=== PATIENT | male | born 1950 | race Caucasian/White ===

== ENCOUNTER 2021-04-24 21:46 | Observation (INO) ==
[2021-04-24] MEDS ORDERED: LORazepam 0.5 MG/1 ML VIAL IV STA (22:05)
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
[2021-04-24 22:28] LABS: Basophils # (auto) 0.01 K/uL (0-0.2); Basophils % (auto) 0.1 %; Eosinophils % (auto) 1.4 %; Hematocrit (blood only) 36.4 % (42-52); Immature Granulocytes # (auto) 0.01 K/uL (0.00-0.02); Immature Granulocytes % (auto) 0.1 %; Lymphocytes % (auto) 19.4 %; Mean Corpuscular Hemoglobin 31.6 pg (25-34); Mean Corpuscular Hgb Conc 35.7 g/dL (32-36); Mean Corpuscular Volume 88.3 fL (80-100); Mean Platelet Volume 9.6 fL (7.4-10.4); Monocytes # (auto) 0.74 K/uL (0.11-0.59); Monocytes % (auto) 10.3 %; Neutrophils # (auto) 4.95 K/uL (1.4-6.5); Neutrophils % (auto) 68.7 %; Platelet Count 298 K/uL (130-400); RDW Coefficient of Variation 13.2 % (11.5-14.5); RDW Standard Deviation 42.7 fL (36.4-46.3); Red Blood Count 4.12 M/uL (4.7-6.1); White Blood Count 7.21 K/uL (4.8-10.8)
[2021-04-24 22:40] LABS: Partial Thromboplastin Ratio 1.4; Partial Thromboplastin Time 38.1 Seconds (21.0-31.0); Prothrombin Time 10.5 Seconds (9.0-12.0)
[2021-04-24 22:49] LABS: Alanine Aminotransferase 16 U/L (7-52); Albumin Globulin Ratio 1.7 (0.9-2); Albumin Level 4.4 gm/dl (3.4-5.0); Alkaline Phosphatase 59 U/L (34-104); Anion Gap 9 (3-11); Aspartate Aminotransferase 19 U/L (13-39); BUN Creatinine Ratio 19.1 (10-20); Bilirubin,Total 0.5 mg/dl (0.2-1.0); Blood Urea Nitrogen 17 mg/dl (6-23); Calcium 9.4 mg/dl (8.5-10.1); Carbon Dioxide 21 mmol/L (21-32); Chloride 94 mmol/L (98-107); Creatinine Clr Calc Pharmacy 93.5 ml/min; Est GFR (African American) 99.7 ml/min; Globulin 2.6 gm/dl (2.5-4.0); Glucose 133 mg/dl (70-99(Fasting)); Magnesium 1.6 mg/dl (1.7-2.4); Potassium 4.1 mmol/L (3.5-5.1); Sodium 124 mmol/L (136-145)
[2021-04-24 22:50] LABS: Troponin I < 0.03 ng/ml (0-0.04)
[2021-04-24] MEDS ORDERED: SODIUM CHLORIDE 0.9% 500 ML IV ONE (23:11)
[2021-04-24] MEDS: MAGNESIUM SULFATE / D5W 1 GM/100 ML BAG IV SCH (23:52)
[2021-04-25] MEDS ORDERED: OPTIRAY 320 125ml IV ONE
[2021-04-25] MEDS: MAGNESIUM SULFATE / D5W 1 GM/100 ML BAG IV SCH (00:58)
--- NOTE | 2021-04-25 01:02 | Emergency Department Note ---
ED Visit Note I have been personally involved in this case with the PA. I agree with the diagnosis and management decisions and have been personally involved in decision making of this case. Please see Katie Weiner PA-C's notes for further details of the history, physical and visit. .
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
[2021-04-25] MEDS ORDERED: NON-FORMULARY MEDICATION (Diphenhydramine Hcl 25 mg Tablet) PO SCH (03:43)
[2021-04-25] MEDS ORDERED: oxyCODONE HCL IR 5 MG TAB (IMMEDIATE RELEASE) PO SCH (03:43)
[2021-04-25] MEDS ORDERED: ACETAMINOPHEN 325 MG TAB PO PRN (03:43)
[2021-04-25] MEDS ORDERED: CALCIUM CARBONATE 500 MG CHEWABLE TAB PO PRN (03:49)
[2021-04-25 07:13] LABS: Basophils # (auto) 0.02 K/uL (0-0.2); Basophils % (auto) 0.3 %; Eosinophils % (auto) 1.6 %; Hematocrit (blood only) 38.2 % (42-52); Hemoglobin 13.5 g/dL (14.0-18.0); Lymphocytes % (auto) 34.5 %; Mean Corpuscular Hemoglobin 31.5 pg (25-34); Mean Corpuscular Hgb Conc 35.3 g/dL (32-36); Mean Platelet Volume 9.7 fL (7.4-10.4); Monocytes # (auto) 0.83 K/uL (0.11-0.59); Neutrophils # (auto) 3.23 K/uL (1.4-6.5); Neutrophils % (auto) 50.6 %; Platelet Count 317 K/uL (130-400); RDW Coefficient of Variation 13.5 % (11.5-14.5); Red Blood Count 4.29 M/uL (4.7-6.1); White Blood Count 6.38 K/uL (4.8-10.8)
--- NOTE | 2021-04-25 07:14 | CT Scan Report ---
UNENHANCED CT OF THE BRAIN; CT ANGIOGRAM OF THE BRAIN; CT ANGIOGRAM OF THE NECK CLINICAL HISTORY: Strokelike symptoms. Dizziness. COMPARISON STUDY: CT of the brain dated 08/02/2020. TECHNIQUE: Unenhanced axial CT scan of the brain is performed. Subsequently, following the IV adminis tration of 121 of [address] [address], CT angiogram of the head and neck was performed from the aortic arch t o the vertex. Images are reviewed in the axial, sagittal, and coronal planes. 3-D MIPS images are cre ated and assessed. IV contrast was administered without complication. All measurements were calculate d based on NASCET criteria. A dose lowering technique was utilized adhering to the principles of ALA RA. CT DOSE: 1298.95 mGy.cm FINDINGS: Brain parenchyma: There is minimal microangiopathic change. There is no hemorrhage, mass effect, or e vidence of acute territorial ischemia by CT criteria. There is no evidence of enhancing mass lesion o n the angiogram phase images. The ventricles, sulci, and cisterns are normal in configuration. Ortiz-w kyleigh matter differentiation is preserved. No extra-axial fluid collection is seen. Thoracic aorta: Visualized portions of the thoracic aorta are normal in caliber. The aortic arch demo nstrates standard 3-vessel anatomy. Right carotid arterial system: The right common carotid artery is widely patent, as is the right exte rnal carotid artery. 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 Left carotid arterial system: The left common carotid artery is widely patent, as are the left intern product marketing manager al and external carotid arteries. Atherosclerotic plaque is noted in the carotid bulb. Vertebral arteries: There is moderate stenosis at the origin of both vertebral arteries. The vertebra l arteries are otherwise patent in the neck noting left-sided dominance. Subclavian arteries: Widely patent bilaterally. Intracranial vasculature: There is atherosclerotic calcification of the cavernous carotid arteries. T he right internal carotid artery is thrombosed at the skull base to the [place]. There is mi nimal retrograde flow. The left internal carotid artery is patent with the skull base, and the anteri or and middle cerebral arteries are patent bilaterally. The right anterior and middle cerebral arteri es are likely supplied via the anterior communicating artery. The vertebrobasilar system and posterio r cerebral arteries are widely patent. The left vertebral artery is dominant. There is no aneurysm, h igh-grade stenosis, or focal vessel cut off seen throughout the intracranial circulation. Jugular veins: Patent bilaterally. Dural sinuses: Patent. Lung apices: Partially visualized upper lobe lung parenchyma appears clear. Soft tissues: The visualized pharyngeal soft tissues are normal in appearance noting angiographic pha se technique. The oropharyngeal airway appears widely patent. The salivary and thyroid glands are nor mal in appearance. No cervical lymphadenopathy is seen. Skeletal structures: The calvarium appears intact. The cervical spine is within normal limits. Orbits: The bony orbits are intact. Orbital contents are normal as visualized. Sinuses and mastoids: The paranasal sinuses are clear. The mastoid air cells are well pneumatized. IMPRESSION: 1. There is no hemorrhage, mass effect, or evidence of acute territorial ischemia by CT criteria. 2. 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 This is age indeterminant and may be chronic. 3. The remaining intracranial vessels are patent. The right anterior and middle cerebral arteries are likely supplied via the anterior communicating artery. 4. The left carotid arterial system is widely patent. 5. There is moderate stenosis at the origin of both vertebral arteries. ACT 112: Negative or not required by law. Electronically signed by: Franco Bhatti M.D. 04/25/2021 7:12 AM
--- NOTE | 2021-04-25 07:28 | XRay Report ---
XR chest 1V portable CLINICAL HISTORY: Weakness. COMPARISON STUDY: Chest radiograph March 08, 2021. CT August 02, 2020. FINDINGS: Lung volumes are normal. Lungs are clear. There is no pneumothorax or pleural effusion. Car diac size is normal. Mediastinal contours are normal. There is no evidence for pulmonary edema. IMPRESSION: No acute cardiopulmonary findings. ACT 112: Negative or not required by law. Electronically signed by: Bao Barron M.D. 04/25/2021 7:27 AM
--- NOTE | 2021-04-25 07:36 | Medical Student Progress Note ---
Date of Service April 25, 2021 Assessment & Plan (1) Dizziness: Plan: This is a 70 year old gentleman with a history of hypertension who presented with fatigue and malaise found to have hyponatremia. 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 - symptoms have improved with fluid restriction, no neurological symptoms - sodium 133 (124 on admission) - negative troponin, normal TSH, CXR no acute pathology, CT Head and Head & Neck CTA shows chronic disease of right internal carotid but no acute pathology - per patient, drinks about 5 L of plain water a day because he's "always being told to drink more" - counseled him on limiting water intake by a little more than half his current intake Hypomagnesemia, resolved: - 1.6 on admission - s/p 2 mg - 2.3 on 04/25/21 AM HTN: - Continue home amlodipine, irbesartan-HCTZ GERD: - Continue home omeprazole - Tums prn HLD: - Continue home atorvastatin Code status: full code Diet: Heart Healthy, 2000 mL fluid restriction DVT Prophylaxis: Lovenox Dispo: ready for discharge (2) Acute hyponatremia: (3) Hypomagnesemia: (4) Hypertension: (5) GERD (gastroesophageal reflux disease): (6) Hyperlipidemia: (7) Primary polydipsia: Admission and Anticipated Discharge Date Admission Date: April 25, 2021 Subjective Dontrell feels better this AM. He says that his lethargy, nausea, and headache have resolved. No confusion, no weakness. Spent some time counseling him on appropriate water intake. Review of Systems Review of Systems: per HPI Physical Exam Constitutional: WD/WN, vitals as above Eyes: PERRL, conjunctivae normal, anicteric sclerae ENMT: external ear and nose normal, oropharynx normal Neck: trachea midline, no thyromegaly Respiratory: normal respiratory effort, lungs clear to auscultation Cardiovascular: RRR, no murmur, no edema Psychiatric: A+Ox3, euthymic affect Results & Data ([facility]) Vital Signs (Past 12 Hours) Vital Signs Temp Pulse Pulse Resp BP BP Pulse Ox 04/25/21 03:40 37 C 69 17 169/95 H 99 04/25/21 03:22 78 16 135/96 97 04/25/21 02:00 63 18 136/89 97 04/25/21 00:00 71 18 167/82 H 97 04/24/21 22:35 68 18 151/96 H 97 04/24/21 21:50 36.4 C L 74 28 H 199/109 H 99
[2021-04-25 07:39] LABS: BUN Creatinine Ratio 15.6 (10-20); Calcium 9.4 mg/dl (8.5-10.1); Creatinine Clr Calc Pharmacy 87.5 ml/min; Est GFR (African American) 99.2 ml/min; Est GFR (Non-African American) 85.6 ml/min; Magnesium 2.3 mg/dl (1.7-2.4); Phosphorus 3.4 mg/dl (2.5-4.9)
[2021-04-25] MEDS ORDERED: MELATONIN 3 MG TAB PO PRN (08:18)
[2021-04-25] MEDS ORDERED: amLODIPine BESYLATE 5 MG TAB PO SCH (09:00)
[2021-04-25] MEDS ORDERED: PANTOprazole 40 MG TAB PO SCH (09:00)
[2021-04-25] MEDS ORDERED: hydroCHLOROthiazide 25 MG TAB PO SCH (09:00)
[2021-04-25] MEDS ORDERED: IRBESARTAN 150 MG TAB PO SCH (09:00)
[2021-04-25] MEDS ORDERED: ENOXAPARIN INJ 40 MG/0.4 ML SYR SQ SCH (09:15)
--- NOTE | 2021-04-25 10:30 | Electrocardiogram Report ---
Test Reason : Blood Pressure : / mmHG Vent. Rate : 064 BPM Atrial Rate : 064 BPM P-R Int : 162 ms QRS Dur : 092 ms QT Int : 400 ms P-R-T Axes : 021 040 038 degrees QTc Int : 412 ms Sinus rhythm with Premature atrial complexes Otherwise normal ECG When compared with ECG of 08-MAR-2021 16:59, Premature atrial complexes are now Present QRS duration has decreased QT has shortened Confirmed by Dragan Chao ([id number]) on 04/25/2021 10:29:52 AM Referred By: REFERRED SELF Confirmed By:Winston Chao
--- NOTE | 2021-04-25 14:32 | Discharge Summary ---
Date of Service April 25, 2021 Admission HPI Per Admitting Provider 70yo male with HTN, HLD, GERD, hearing loss, and renal cyst presents with a two- day history of fatigue, chills, lightheadedness, headache, and feeling feverish. No recent illnesses or sick contacts. Symptoms developed gradually. Denies objective fever, congestion, sore throat, cough, CP, palpitations, SOB, abdominal pain, nausea, vomiting, diarrhea, dysuria, numbness, tingling, weakness, or other symptoms. Patient notes he has been drinking a large volume of water each day (about five to eight 16oz bottles during the day and five to six at night) which he does "to replace the fluids that my miralax and diuretic take away from me". Patient notes he needs to urinate about every 15 minutes. Patient notes he's been drinking this quantity of fluids for "at least a few months" but is unsure of exactly how long it's been going on. No change in appetite recently. Denies alcohol use or other recreational substance use. Admission Exam Per Admitting Provider Constitutional: well-appearing, no acute distress HEENT: NCAT, no conjunctival injection, MMM CV: regular rhythm, no murmur appreciated, extremities well-perfused, no LE edema Resp: CTABL, no wheezes/rales/rhonchi appreciated, no increased work of breathing GI: soft, nondistended, nontender, BS normoactive MSK: no gross deformities appreciated Skin: warm, dry, no rash appreciated Neuro: alert, oriented, no focal neurologic deficit appreciated Principal Diagnosis Hyponatremia Discharge Exam Constitutional WD/WN, vitals as above Eyes PERRL, conjunctivae normal, anicteric sclerae Neck trachea midline, no thyromegaly Respiratory normal respiratory effort, lungs clear to auscultation Cardiovascular RRR, no murmur, no edema Gastrointestinal (Abdomen) normal bowel sounds, soft, nontender, no hepatosplenomegaly Skin warm, dry, well-perfused Psychiatric A+Ox3, euthymic affect Discharge Data Allergies Allergy/AdvReac Type Severity Reaction Status Date / Time Penicillins AdvReac Intermediate Gastrointestinal Verified 04/24/21 23:08 Upset sulfacetamide AdvReac Intermediate Gastrointestinal Verified 04/24/21 23:08 [From Sulfamide] Upset Consultations 04/25/21 00:53 ED Decision to Admit Stat Ordered Studies Laboratory Results 04/25/21 04/25/21 04/24/21 Range/Units 06:30 06:30 23:55 WBC 6.38 (4.8-10.8) K/uL RBC 4.29 L (4.7-6.1) M/uL Hgb 13.5 L (14.0-18.0) g/dL Hct 38.2 L (42-52) % MCV 89.0 (80-100) fL MCH 31.5 (25-34) pg MCHC 35.3 (32-36) g/dL RDW Std Deviation 44.0 (36.4-46.3) fL RDW Coeff of Moises 13.5 (11.5-14.5) % Plt Count 317 (130-400) K/uL MPV 9.7 (7.4-10.4) fL Immature Gran % (Auto) 0.0 % Neut % (Auto) 50.6 % Lymph % (Auto) 34.5 % Lea % (Auto) 13.0 % Eos % (Auto) 1.6 % Baso % (Auto) 0.3 % Neut # (Auto) 3.23 (1.4-6.5) K/uL Lymph # (Auto) 2.20 (1.2-3.4) K/uL Lea # (Auto) 0.83 H (0.11-0.59) K/uL Eos # (Auto) 0.10 (0-0.5) K/uL Baso # (Auto) 0.02 (0-0.2) K/uL Immature Gran # (Auto) 0.00 (0.00-0.02) K/uL PT (9.0-12.0) Seconds INR (0.9-1.1) APTT (21.0-31.0) Seconds PTT Ratio Sodium 133 L D (136-145) mmol/L Potassium 4.0 (3.5-5.1) mmol/L Chloride 102 (98-107) mmol/L Carbon Dioxide 24 (21-32) mmol/L Anion Gap 7 (3-11) BUN 14 (6-23) mg/dl Creatinine 0.90 (0.6-1.4) mg/dl Est Cr Clr Drug Dosing 87.5 ml/min Est GFR ( Amer) 99.2 ml/min Est GFR (Non-Af Amer) 85.6 ml/min BUN/Creatinine Ratio 15.6 (10-20) Glucose 90 (70-99(Fasting)) mg/dl Osmolality (280-300) mOsm/kg Calcium 9.4 (8.5-10.1) mg/dl Phosphorus 3.4 (2.5-4.9) mg/dl Magnesium 2.3 (1.7-2.4) mg/dl Total Bilirubin (0.2-1.0) mg/dl AST (13-39) U/L ALT (7-52) U/L Alkaline Phosphatase (34-104) U/L Troponin I (0-0.04) ng/ml Total Protein (6.0-8.3) gm/dl Albumin (3.4-5.0) gm/dl Globulin (2.5-4.0) gm/dl Albumin/Globulin Ratio (0.9-2) TSH (0.300-4.500) uIu/ml Urine Osmolality 139 L (500-800) mOsm/kg SARS-CoV-2, RNA, NAAT (NEGATIVE) 04/24/21 04/24/21 04/24/21 Range/Units 23:25 23:21 22:15 WBC (4.8-10.8) K/uL RBC (4.7-6.1) M/uL Hgb (14.0-18.0) g/dL Hct (42-52) % MCV (80-100) fL MCH (25-34) pg MCHC (32-36) g/dL RDW Std Deviation (36.4-46.3) fL RDW Coeff of Moises (11.5-14.5) % Plt Count (130-400) K/uL MPV (7.4-10.4) fL Immature Gran % (Auto) % Neut % (Auto) % Lymph % (Auto) % Lea % (Auto) % Eos % (Auto) % Baso % (Auto) % Neut # (Auto) (1.4-6.5) K/uL Lymph # (Auto) (1.2-3.4) K/uL Lea # (Auto) (0.11-0.59) K/uL Eos # (Auto) (0-0.5) K/uL Baso # (Auto) (0-0.2) K/uL Immature Gran # (Auto) (0.00-0.02) K/uL PT (9.0-12.0) Seconds INR (0.9-1.1) APTT (21.0-31.0) Seconds PTT Ratio Sodium (136-145) mmol/L Potassium (3.5-5.1) mmol/L Chloride (98-107) mmol/L Carbon Dioxide (21-32) mmol/L Anion Gap (3-11) BUN (6-23) mg/dl Creatinine (0.6-1.4) mg/dl Est Cr Clr Drug Dosing ml/min Est GFR ( Amer) ml/min Est GFR (Non-Af Amer) ml/min BUN/Creatinine Ratio (10-20) Glucose (70-99(Fasting)) mg/dl Osmolality 271 L (280-300) mOsm/kg Calcium (8.5-10.1) mg/dl Phosphorus (2.5-4.9) mg/dl Magnesium (1.7-2.4) mg/dl Total Bilirubin (0.2-1.0) mg/dl AST (13-39) U/L ALT (7-52) U/L Alkaline Phosphatase (34-104) U/L Troponin I (0-0.04) ng/ml Total Protein (6.0-8.3) gm/dl Albumin (3.4-5.0) gm/dl Globulin (2.5-4.0) gm/dl Albumin/Globulin Ratio (0.9-2) TSH 1.961 (0.300-4.500) uIu/ml Urine Osmolality (500-800) mOsm/kg SARS-CoV-2, RNA, NAAT NEGATIVE (NEGATIVE) 04/24/21 04/24/21 04/24/21 Range/Units 22:15 22:15 22:15 WBC 7.21 (4.8-10.8) K/uL RBC 4.12 L (4.7-6.1) M/uL Hgb 13.0 L (14.0-18.0) g/dL Hct 36.4 L (42-52) % MCV 88.3 (80-100) fL MCH 31.6 (25-34) pg MCHC 35.7 (32-36) g/dL RDW Std Deviation 42.7 (36.4-46.3) fL RDW Coeff of Moises 13.2 (11.5-14.5) % Plt Count 298 (130-400) K/uL MPV 9.6 (7.4-10.4) fL Immature Gran % (Auto) 0.1 % Neut % (Auto) 68.7 % Lymph % (Auto) 19.4 % Lea % (Auto) 10.3 % Eos % (Auto) 1.4 % Baso % (Auto) 0.1 % Neut # (Auto) 4.95 (1.4-6.5) K/uL Lymph # (Auto) 1.40 (1.2-3.4) K/uL Lea # (Auto) 0.74 H (0.11-0.59) K/uL Eos # (Auto) 0.10 (0-0.5) K/uL Baso # (Auto) 0.01 (0-0.2) K/uL Immature Gran # (Auto) 0.01 (0.00-0.02) K/uL PT 10.5 (9.0-12.0) Seconds INR 1.0 (0.9-1.1) APTT 38.1 H (21.0-31.0) Seconds PTT Ratio 1.4 Sodium 124 L (136-145) mmol/L Potassium 4.1 (3.5-5.1) mmol/L Chloride 94 L (98-107) mmol/L Carbon Dioxide 21 (21-32) mmol/L Anion Gap 9 (3-11) BUN 17 (6-23) mg/dl Creatinine 0.89 (0.6-1.4) mg/dl Est Cr Clr Drug Dosing 93.5 ml/min Est GFR ( Amer) 99.7 ml/min Est GFR (Non-Af Amer) 86.0 ml/min BUN/Creatinine Ratio 19.1 (10-20) Glucose 133 H (70-99(Fasting)) mg/dl Osmolality (280-300) mOsm/kg Calcium 9.4 (8.5-10.1) mg/dl Phosphorus (2.5-4.9) mg/dl Magnesium 1.6 L (1.7-2.4) mg/dl Total Bilirubin 0.5 (0.2-1.0) mg/dl AST 19 (13-39) U/L ALT 16 (7-52) U/L Alkaline Phosphatase 59 (34-104) U/L Troponin I < 0.03 (0-0.04) ng/ml Total Protein 7.0 (6.0-8.3) gm/dl Albumin 4.4 (3.4-5.0) gm/dl Globulin 2.6 (2.5-4.0) gm/dl Albumin/Globulin Ratio 1.7 (0.9-2) TSH (0.300-4.500) uIu/ml Urine Osmolality (500-800) mOsm/kg SARS-CoV-2, RNA, NAAT (NEGATIVE) Head CTA 04/24/21 22:[address] OF THE BRAIN; CT ANGIOGRAM OF THE BRAIN; CT ANGIOGRAM OF THE NECK CLINICAL HISTORY: Strokelike symptoms. Dizziness. COMPARISON STUDY: CT of the brain dated 08/02/2020. TECHNIQUE: Unenhanced axial CT scan of the brain is performed. Subsequently, following the IV administration of 121 of Optiray 320, CT angiogram of the head and neck was performed from the aortic arch to the vertex. Images are reviewed in the axial, sagittal, and coronal planes. 3-D MIPS images are created and assessed. IV contrast was administered without complication. All measurements were calculated based on NASCET criteria. A dose lowering technique was utilized adhering to the principles of ALARA. CT DOSE: 1298.95 mGy.cm FINDINGS: Brain parenchyma: There is minimal microangiopathic change. There is no hemorrhage, mass effect, or evidence of acute territorial ischemia by CT criteria. There is no evidence of enhancing mass lesion on the angiogram phase images. The ventricles, sulci, and cisterns are normal in configuration. Ortiz- white matter differentiation is preserved. No extra-axial fluid collection is seen. Thoracic aorta: Visualized portions of the thoracic aorta are normal in caliber. The aortic arch demonstrates standard 3-vessel anatomy. Right carotid arterial system: The right common carotid artery is widely patent, as is the right external carotid artery. 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 Left carotid arterial system: The left common carotid artery is widely patent, as are the left internal and external carotid arteries. Atherosclerotic plaque is noted in the carotid bulb. Vertebral arteries: There is moderate stenosis at the origin of both vertebral arteries. The vertebral arteries are otherwise patent in the neck noting left- sided dominance. Subclavian arteries: Widely patent bilaterally. Intracranial vasculature: There is atherosclerotic calcification of the cavernous carotid arteries. The right internal carotid artery is thrombosed at the skull base to the deering of Mel[place]. There is minimal retrograde flow. The left internal carotid artery is patent with the skull base, and the anterior and middle cerebral arteries are patent bilaterally. The right anterior and middle cerebral arteries are likely supplied via the anterior communicating artery. The vertebrobasilar system and posterior cerebral arteries are widely patent. The left vertebral artery is dominant. There is no aneurysm, high-grade stenosis, or focal vessel cut off seen throughout the intracranial circulation. Jugular veins: Patent bilaterally. Dural sinuses: Patent. Lung apices: Partially visualized upper lobe lung parenchyma appears clear. Soft tissues: The visualized pharyngeal soft tissues are normal in appearance noting angiographic phase technique. The oropharyngeal airway appears widely patent. The salivary and thyroid glands are normal in appearance. No cervical lymphadenopathy is seen. Skeletal structures: The calvarium appears intact. The cervical spine is within normal limits. Orbits: The bony orbits are intact. Orbital contents are normal as visualized. Sinuses and mastoids: The paranasal sinuses are clear. The mastoid air cells are well pneumatized. IMPRESSION: 1. There is no hemorrhage, mass effect, or evidence of acute territorial ischemia by CT criteria. 2. 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 This is age indeterminant and may be chronic. 3. The remaining intracranial vessels are patent. The right anterior and middle cerebral arteries are likely supplied via the anterior communicating artery. 4. The left carotid arterial system is widely patent. 5. There is moderate stenosis at the origin of both vertebral arteries. ACT 112: Negative or not required by law. Electronically signed by: Franco Bhatti M.D. 04/25/2021 7:12 AM Chest X-Ray 04/24/21 22:23 XR chest 1V portable CLINICAL HISTORY: Weakness. COMPARISON STUDY: Chest radiograph March 08, 2021. CT August 02, 2020. FINDINGS: Lung volumes are normal. Lungs are clear. There is no pneumothorax or pleural effusion. Cardiac size is normal. Mediastinal contours are normal. There is no evidence for pulmonary edema. IMPRESSION: No acute cardiopulmonary findings. ACT 112: Negative or not required by law. Electronically signed by: Bao Barron M.D. 04/25/2021 7:27 AM Hospital Course (1) Dizziness: Dontrell House is a 70 year old gentleman with a history of hypertension who presented to the ED with a 2-day history of fatigue, malaise, nausea, and headache who was found to have hyponatremia. 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 The plan was discussed among Javier Astorga, the attending physician, and myself. Please refer to Dr. Black's documentation for further information. (2) Acute hyponatremia: (3) Hypomagnesemia: (4) Hypertension: (5) GERD (gastroesophageal reflux disease): (6) Hyperlipidemia: (7) Primary polydipsia: Total Time Total Time Spent Total Time Spent (In Minutes): 30 Discharge Plan Discharge Items Patient Disposition: Home - Self-Care Reason For Visit: HYPONATREMIA Discharge Diagnosis: Hyponatremia Condition on Discharge: Good Activity: Per Instructions section Non-emergency contact: Primary Care Provider Call non-emergency contact if: you have any medication questions and your symptoms worsen Follow-up/Referrals: Bill Graham MD [Primary Care Provider] - 05/03/21 10:00 am Diet: Heart Healthy Addtl Attending Provider Instructions: You were admitted to [facility] due to fatigue, weakness, and lightheadedness. Upon your admission, you were found to have low sodium levels in your blood. This is thought to be the cause of your symptoms. Overnight, your fluids were limited and your sodium did improve significantly, though it did remain mildly decreased. It is likely that this will continue to improve by limiting your fluid intake to around 60-80 ounces daily. Please refrain from drinking excessive amounts of water, as this can decrease your sodium significantly. However, you are taking medications that could potentially decrease your sodium as well. The combined medication that you take for blood pressure, which contains irbesartan and hydrochlorothiazide, especially in conjunction can decrease your sodium. We recommend that you follow-up with your PCP for a repeat metabolic panel to recheck your sodium in 2 or 3 days. If your sodium is back to normal, it is likely that your low sodium levels were completely caused by over consumption of water. If your sodium is still somewhat low, it may be reasonable to discuss switching one of the above medications for another that does not potentially lower sodium. You follow-up has been scheduled at the [facility] with Dr. Arcadio Cho on April at 12:50PM. If you have any concerning symptoms such as lightheadedness, fainting, nausea, vomiting, neurologic symptoms, weakness, confusion, or any other severe symptoms please return to the hospital for reevaluation. Pending Studies at Discharge: No Stand-Alone Forms: My [facility], Smoking Cessation Medications and DC Order Prescriptions: Continued calcium carbonate [Tums] 300 mg (750 mg) Tablet,Chewable 300 mg PO DIRECTED PRN (Reason: Indigestion) RF: 0 omeprazole 10 mg capsule,delayed release(DR/EC) 10 mg PO DAILY RF: 0 diphenhydramine HCl 25 mg Tablet 12.5 mg PO ONCE RF: 0 oxycodone 5 mg Tablet 7.5 mg PO ONCE RF: 0 atorvastatin 40 mg Tablet 40 mg PO HS RF: 0 amlodipine 5 mg Tablet 5 mg PO DAILY RF: 0 irbesartan-hydrochlorothiazide 300-12.5 mg tablet 1 tab PO DAILY RF: 0 Discharge Orders: Discharge Order (Routine); Ordered 04/25/21 Ordered By: Karan Caraballo/Other Patient Handouts: Hyponatremia Dc, ED Hyponatremia Admission Data Admit Date/Time: 04/25/21 02:42 Attending Provider: Igor Black Admit Provider: Narinder Joseph Primary Care Provider: Bill Graham I. Other Providers: Edgard Ruiz Other Interventions: Discharge Summary Assessment (RN) Last Done: 04/25/21 16:30 Supervising Physician Co-Signing Physician Notes I also saw the patient and confirmed vega portions of the history and exam. I agree with the impression and plan as noted in the resident documentation. Upon my exam, the patient is sleeping in bed but awakens easily. He has no complaints. He feels much better than yesterday. He actually had been out of his bed, off the floor, and walking outside (he did not realize he was unable to leave the hospital and walk on the grounds). 128/75, 61, 16, 36.7, 96% room air Alert and oriented. Somewhat hard of hearing but otherwise conversational. Heart regular rate and rhythm Respirations unlabored Lab work from this morning shows a hemoglobin of 13.5, hematocrit 30.2, platelet count 317 Serum sodium has improved from 124-133 with fluid restriction alone. Remainder of electrolytes are unremarkable. Urine osmolality is low at 139. Hyponatremia Patient reports drinking excess amounts of water. Counseled and he will reduce. We will recheck a BMP in the office later this week. If continues to be lowlow normal, would consider discontinuation of his hydrochlorothiazide Else per resident documentation Resident Activity Tracking Resident Involvement: Resident Care Provided Care Provided: Adult Hospital Medicine
[2021-04-25 16:00] LABS: Appearance Urine Clear (Clear); Bilirubin Urine Negative (Negative); Blood Urine Negative (Negative); Color Urine Yellow; Glucose Urine UA Negative (Negative); Ketones Urine Negative (Negative); Leukocyte Esterase Urine Negative (Negative); Nitrite Urine Negative (Negative); Protein Urine Negative (Negative); Specific Gravity Urine 1.019 (1.000-1.030); Urobilinogen Urine Negative (Negative)
[2021-04-25] MEDS ORDERED: ATORVASTATIN 40 MG TAB PO SCH (21:00)
[2021-04-27 10:07] LABS: Urea Nitrogen, Random Urine 515 mg/dL
== END 2021-04-25 16:30 | disposition home or self-care (01) | DRG 641 ==
LOC: ED 21:46 → INTOOBSV 04-25 02:42 → SUATTDRO 04-25 02:42 → 3N 04-25 02:42